=== PATIENT | male | born 1970 | race Caucasian/White ===

== ENCOUNTER → 2020-03-12 | Outpatient (CLI) | payer OTHER ==
[2014-11-07 13:06] VITALS: BP 133/77
[~2020-03-12] MED LIST: ANAS1TAB PO; CHOL400C2 PO; CHOL500016 PO; HYDR12.58 PO; LISI1TAB20 PO; LISI1TAB23 PO; LISI1TAB37 PO; LYSI100013 PO; MELO15TA23 PO; PRAS50CA PO; SILD100T PO; TEST200V3 IM
--- NOTE | 2020-03-12 11:08 | RAD ---
CT Abdomen and Pelvis without contrast History: Kidney stone, bilateral flank pain Technique: Noncontrast CT imaging was performed of the abdomen and pelvis. Multiplanar images are reviewed. Exposure: One or more of the following individualized dose reduction techniques were utilized for this examination: 1. Automated exposure control 2. Adjustment of the mA and/or kV according to patient size 3. Use of iterative reconstruction technique. Comparison: November 21, 2013 Findings: There is no hydronephrosis of either kidney. There is a small about 1 mm mid left renal calculus. No ureteral calculus is identified on either side. Accurate evaluation of abdominal visceral organs is limited without intravenous contrast. There is no obvious abnormality of the spleen, liver, or pancreas. Gallbladder is present without obvious intraluminal abnormality by CT. There is no adrenal nodularity. Accurate evaluation of bowel is limited without oral contrast. There is no significant free air, free fluid, bowel dilatation. Appendix is not confidently identified if still present. There is retained stool in the right colon. There is mild colonic diverticulosis such as of descending and sigmoid colon, no evidence of diverticulitis. Mild hazy density of the left mesenteric fat is stable. There is again small umbilical fascial defect, no internal bowel. There is again prostatomegaly. There is mild prominence of the urinary bladder shay. There is L5-S1 degenerative disc disease, also spondylosis. There is severe narrowing of the left T10-11 and T9-10 neural foramina by facets, lesser degree of narrowing left greater than right at L5-S1. There are some fused anterior osteophytes about the sacroiliac joints. Impression: 1. There is a small nonobstructive left renal calculus, no hydronephrosis or ureteral calculus identified. 2. There is mild colonic diverticulosis. There is retained stool greater of the right colon. 3. There is again prostatomegaly, prostate cancer screening advised if not already performed. Mild nonspecific prominence of the urinary bladder shay may be due to chronic outlet obstruction. 4. There is severe narrowing of the left T9-10 and T10-11 neural foramina by facets, lesser degree of narrowing left greater than right at L5-S1. Electronically signed by: Anderson Hinds MD (03/12/2020 11:05 AM) [id number]
== END | disposition home or self-care (01) ==
LOC: CT 09:36
PROVIDERS: ATTEND Urology
DX: K57.30 Diverticulosis of large intestine without perforation or abscess without bleeding (principal); N20.0 Calculus of kidney; N40.0 Benign prostatic hyperplasia without lower urinary tract symptoms; M51.37 Other intervertebral disc degeneration, lumbosacral region; M48.07 Spinal stenosis, lumbosacral region; M25.78 Osteophyte, vertebrae; M48.04 Spinal stenosis, thoracic region
CPT/HCPCS: 74176